=== PATIENT | female | born 1955 | race African-American/Black ===

== ENCOUNTER 2021-07-09 23:10 | Inpatient (IN) | payer MEDICARE, MEDICAID ==
[~2021-07-09] VITALS: Ht 167.6 cm; Wt 131.6 kg
[2021-07-09 23:10] VITALS: BP 167/92
[2021-07-09 23:30] VITALS: BP 192/101
[2021-07-10] MEDS ORDERED: ONDANSETRON HCL 4MG/2ML INJ IV PRN
[2021-07-10] MEDS ORDERED: SODIUM CHLORIDE 0.9% 1,000 ML IV SCH
[2021-07-10] MEDS: HYDROCODONE/ACETAMINOPHEN 10/325MG TABLET PO PRN ×2 (00:27→10:40)
[2021-07-10] MEDS ORDERED: CEFTRIAXONE 1,000 MG in DEXTROSE 5% WATER 50 ML IV SCH ×2 (01:00→06:00)
[2021-07-10] MEDS: CLONIDINE 0.1MG TABLET PO PRN ×2 (02:43→22:08)
[2021-07-10 08:00] VITALS: BP 168/86
[2021-07-10] MEDS ORDERED: AMLODIPINE 10MG TABLET PO SCH (09:00)
[2021-07-10] MEDS ORDERED: LOSARTAN POTASSIUM 50 MG TABLET PO SCH (09:00)
[2021-07-10] MEDS: FERROUS SULFATE 325MG TABLET PO SCH ×3 (10:38→18:30)
[2021-07-10 12:09] LABS: BASOPHILS % 0.2 % (0.0-2.0); EOSINOPHILS % 0.5 % (0.0-5.0); HEMATOCRIT. 31.3 % (36.0-48.0); LYMPHOCYTES % 9.2 % (20.0-50.0); MEAN CORPUSCULAR HEMOGLOBIN 31.3 pg (28.0-32.0); MEAN CORPUSCULAR VOLUME 97.5 fL (81.0-99.0); MEAN PLATELET VOLUME 8.9 fl (7.4-10.4); NEUTROPHILS % 85.1 % (40.0-76.0); PLATELET 254 x1000/uL (130-400); RED BLOOD CELL COUNT 3.21 mill/uL (4.2-5.4); RED CELL DISTRIBUTION WIDTH 15.6 % (11.6-14.6)
[2021-07-10 12:20] LABS: CHLORIDE 109 mEq/L (98-107)
[2021-07-10] MEDS: ASPIRIN 81MG TABLET PO SCH (13:48)
[2021-07-10] MEDS ORDERED: NALOXONE HCL 0.4MG/ML VIAL IV PRN (16:00)
[2021-07-10 20:00] VITALS: BP 170/93
[2021-07-11] VITALS (11 sets, daily range): BP systolic 161–217; BP diastolic 83–105
[2021-07-11] MEDS ORDERED: HYDRALAZINE HCL 25MG TABLET PO SCH ×3 (00:30→09:00)
[2021-07-11] MEDS: HYDROCODONE/ACETAMINOPHEN 10/325MG TABLET PO PRN ×2 (00:40→09:02)
[2021-07-11] MEDS: CLONIDINE 0.1MG TABLET PO PRN ×2 (03:44→17:12)
[2021-07-11] MEDS ORDERED: HYDRALAZINE HCL 50MG TABLET PO SCH (06:30)
[2021-07-11] MEDS ORDERED: CLONIDINE 0.1MG TABLET PO SCH (06:30)
[2021-07-11 07:56] LABS: CLARITY URINE CLEAR (CLEAR); COLOR URINE YELLOW (YELLOW); KETONES URINE TRACE (NEGATIVE); LEUKOCYTE ESTERASE URINE NEGATIVE (NEGATIVE); NITRITE URINE NEGATIVE (NEGATIVE); OCCULT BLOOD URINE TRACE (NEGATIVE); PROTEIN URINE 3+ (NEGATIVE); SPECIFIC GRAVITY URINE 1.012 (1.005-1.030); UROBILINOGEN URINE 0.2 E.U./dL (0.2-1.0)
[2021-07-11] MEDS: ASPIRIN 81MG TABLET PO SCH (09:00)
[2021-07-11] MEDS: AMLODIPINE 10MG TABLET PO SCH ×2 (09:00→21:10)
[2021-07-11] MEDS ORDERED: CARVEDILOL 6.25 MG TABLET PO SCH (09:00)
[2021-07-11] MEDS: FERROUS SULFATE 325MG TABLET PO SCH ×3 (09:00→17:11)
[2021-07-11] MEDS: LOSARTAN POTASSIUM 100 MG TABLET PO SCH (09:00)
[2021-07-11 11:58] LABS: BASOPHILS % 0.4 % (0.0-2.0); EOSINOPHILS % 1.5 % (0.0-5.0); HEMATOCRIT. 32.1 % (36.0-48.0); HEMOGLOBIN. 10.2 g/dL (12.0-16.0); LYMPHOCYTES % 9.3 % (20.0-50.0); MEAN CORPUSCULAR VOLUME 97.3 fL (81.0-99.0); MEAN PLATELET VOLUME 8.7 fl (7.4-10.4); MONOCYTES % 4.8 % (2.0-8.0); PLATELET 272 x1000/uL (130-400); RED BLOOD CELL COUNT 3.29 mill/uL (4.2-5.4); RED CELL DISTRIBUTION WIDTH 15.5 % (11.6-14.6)
[2021-07-11] MEDS ORDERED: CLONIDINE HCL 0.1MG/24HR PATCH TD SCH (12:00)
[2021-07-11] MEDS ORDERED: CLONIDINE HCL 0.2MG/24HR PATCH TD SCH (12:00)
[2021-07-11 12:11] LABS: CHLORIDE 109 mEq/L (98-107)
[2021-07-11 12:24] LABS: TOTAL IRON BINDING CAPACITY 230 ug/dL (250-450)
[2021-07-11 12:34] LABS: FOLIC ACID (FOLATE) SERUM >20 ng/mL ng/mL (>5.38)
[2021-07-11 12:42] LABS: FERRITIN 109 ng/mL (10-291)
[2021-07-11 12:44] LABS: VITAMIN B12 SERUM 404 pg/mL (211-911)
[2021-07-11] MEDS: HYDRALAZINE HCL 100MG TABLET PO SCH ×2 (13:24→23:23)
[2021-07-11] MEDS: POTASSIUM CHLORIDE 20MEQ TABLET SR PO SCH ×2 (13:24→21:09)
[2021-07-11] MEDS ORDERED: HYDRALAZINE 10 MG in SODIUM CHLORIDE 0.9% 49.5 ML IV PRN (19:15)
[2021-07-11] MEDS: CARVEDILOL 12.5MG TABLET PO SCH (21:11)
[2021-07-11 21:50] LABS: T4 FREE 1.21 ng/dL (0.76-1.46)
[2021-07-11] MEDS: ISOSORBIDE DINITRATE 20MG TABLET PO SCH (22:02)
[2021-07-12] MEDS: HYDRALAZINE HCL 100MG TABLET PO SCH ×4 (05:50→22:05)
[2021-07-12] MEDS ORDERED: HYDR118S9 PO (06:48)
[2021-07-12] MEDS ORDERED: LACT10SO30 MT (06:59)
[2021-07-12] MEDS ORDERED: DOCU250C69 PO (06:59)
[2021-07-12] MEDS ORDERED: LUBI24CA5 MT (06:59)
[2021-07-12] MEDS ORDERED: FLUT15.844 BOTHNSTRLS (06:59)
[2021-07-12] MEDS ORDERED: NIFE-53 MT (06:59)
[2021-07-12] MEDS ORDERED: FURO40TA5 MT (06:59)
[2021-07-12] MEDS ORDERED: UMEC1DIS INH (06:59)
[2021-07-12] MEDS ORDERED: CALC-26 PO (06:59)
[2021-07-12] MEDS ORDERED: BACL20TA MT (06:59)
[2021-07-12] MEDS ORDERED: LORA10TA7 PO (06:59)
[2021-07-12] MEDS ORDERED: PROM6.2514 MT (06:59)
[2021-07-12 08:00] VITALS: BP 150/82
[2021-07-12] MEDS ORDERED: *PATIENT'S OWN MEDICATION STORAGE XX SCH (08:15)
[2021-07-12] MEDS: LOSARTAN POTASSIUM 100 MG TABLET PO SCH (08:36)
[2021-07-12] MEDS: ISOSORBIDE DINITRATE 20MG TABLET PO SCH ×3 (08:36→18:30)
[2021-07-12] MEDS: ASPIRIN 81MG TABLET PO SCH (08:36)
[2021-07-12] MEDS: POTASSIUM CHLORIDE 20MEQ TABLET SR PO SCH ×2 (08:36→22:03)
[2021-07-12] MEDS: CARVEDILOL 12.5MG TABLET PO SCH ×2 (08:37→22:04)
[2021-07-12] MEDS: AMLODIPINE 10MG TABLET PO SCH ×2 (08:37→22:04)
[2021-07-12] MEDS: FERROUS SULFATE 325MG TABLET PO SCH ×3 (08:37→18:30)
[2021-07-12] MEDS ORDERED: FUROSEMIDE 40MG TABLET PO SCH (09:00)
[2021-07-12] MEDS: POLYETHYLENE GLYCOL 3350 (17GM) 1 DOSE PACK PO SCH (11:00)
[2021-07-12] MEDS: DOCUSATE SODIUM 100MG CAPSULE PO SCH ×2 (11:00→17:00)
[2021-07-12] MEDS: ASCORBIC ACID 500 MG TABLET PO SCH (12:54)
[2021-07-12] MEDS: CYANOCOBALAMIN 1000MCG/ML VIAL IM SCH (12:55)
[2021-07-12 13:00] VITALS: BP 116/66
[2021-07-12] MEDS ORDERED: FUROSEMIDE 40MG/4ML VIAL IVP SCH (14:30)
[2021-07-12 18:46] LABS: CLARITY URINE CLEAR (CLEAR); COLOR URINE YELLOW (YELLOW); KETONES URINE NEGATIVE (NEGATIVE); LEUKOCYTE ESTERASE URINE NEGATIVE (NEGATIVE); NITRITE URINE NEGATIVE (NEGATIVE); OCCULT BLOOD URINE NEGATIVE (NEGATIVE); PROTEIN URINE 2+ (NEGATIVE); SPECIFIC GRAVITY URINE 1.008 (1.005-1.030); UROBILINOGEN URINE 0.2 E.U./dL (0.2-1.0)
[2021-07-12 20:00] VITALS: BP 121/61
[2021-07-12 22:00] VITALS: BP 141/67
[2021-07-12] MEDS: ACETAMINOPHEN 325MG TABLET PO PRN (22:04)
[2021-07-13] MEDS: HYDRALAZINE HCL 100MG TABLET PO SCH ×3 (05:42→22:00)
[2021-07-13 06:16] LABS: BASOPHILS % 0.5 % (0.0-2.0); EOSINOPHILS % 1.3 % (0.0-5.0); HEMATOCRIT. 26.8 % (36.0-48.0); HEMOGLOBIN. 8.4 g/dL (12.0-16.0); LYMPHOCYTES % 14.4 % (20.0-50.0); MEAN CORPUSCULAR HEMOGLOBIN 30.8 pg (28.0-32.0); MEAN PLATELET VOLUME 8.7 fl (7.4-10.4); MONOCYTES % 7.7 % (2.0-8.0); NEUTROPHILS % 76.1 % (40.0-76.0); PLATELET 226 x1000/uL (130-400); RED BLOOD CELL COUNT 2.73 mill/uL (4.2-5.4); RED CELL DISTRIBUTION WIDTH 15.5 % (11.6-14.6)
[2021-07-13 07:29] VITALS: BP 93/42
[2021-07-13] MEDS: AMLODIPINE 10MG TABLET PO SCH ×2 (09:00→21:00)
[2021-07-13] MEDS: CARVEDILOL 12.5MG TABLET PO SCH ×2 (09:00→21:00)
[2021-07-13] MEDS: SODIUM CHLORIDE 0.45% 1,000 ML IV SCH ×2 (10:45→23:32)
[2021-07-13] MEDS: LACTULOSE 20G/30ML UDC PO SCH ×3 (10:53→21:00)
[2021-07-13] MEDS: CYANOCOBALAMIN 1000MCG/ML VIAL IM SCH (13:03)
[2021-07-13] MEDS: ASPIRIN 81MG TABLET PO SCH (13:04)
[2021-07-13] MEDS: FERROUS SULFATE 325MG TABLET PO SCH ×3 (13:05→19:29)
[2021-07-13] MEDS: ISOSORBIDE DINITRATE 20MG TABLET PO SCH ×3 (13:06→19:34)
[2021-07-13] MEDS: ASCORBIC ACID 500 MG TABLET PO SCH (13:07)
[2021-07-13] MEDS: ACETAMINOPHEN 325MG TABLET PO PRN ×2 (13:08→16:51)
[2021-07-13] MEDS: DOCUSATE SODIUM 100MG CAPSULE PO SCH ×2 (16:34→19:29)
[2021-07-13] MEDS: POLYETHYLENE GLYCOL 3350 (17GM) 1 DOSE PACK PO SCH (16:34)
[2021-07-13] MEDS: LIDOCAINE 5% PATCH TOP SCH (16:38)
[2021-07-13 20:00] VITALS: BP 107/49
[2021-07-14] MEDS: HYDRALAZINE HCL 100MG TABLET PO SCH ×3 (06:11→21:33)
[2021-07-14 07:24] LABS: BASOPHILS % 0.3 % (0.0-2.0); EOSINOPHILS % 2.3 % (0.0-5.0); HEMATOCRIT. 25.8 % (36.0-48.0); HEMOGLOBIN. 8.2 g/dL (12.0-16.0); MEAN CORPUSCULAR HEMOGLOBIN 31.3 pg (28.0-32.0); MEAN CORPUSCULAR VOLUME 98.5 fL (81.0-99.0); MEAN PLATELET VOLUME 8.8 fl (7.4-10.4); MONOCYTES % 7.3 % (2.0-8.0); NEUTROPHILS % 74.1 % (40.0-76.0); PLATELET 221 x1000/uL (130-400); RED BLOOD CELL COUNT 2.62 mill/uL (4.2-5.4); RED CELL DISTRIBUTION WIDTH 15.2 % (11.6-14.6)
[2021-07-14 07:33] LABS: CHLORIDE 111 mEq/L (98-107)
[2021-07-14 07:57] VITALS: BP 116/53
[2021-07-14] MEDS: POLYETHYLENE GLYCOL 3350 (17GM) 1 DOSE PACK PO SCH (08:31)
[2021-07-14] MEDS: LIDOCAINE 5% PATCH TOP SCH (08:32)
[2021-07-14] MEDS: ASPIRIN 81MG TABLET PO SCH (08:32)
[2021-07-14] MEDS: CARVEDILOL 12.5MG TABLET PO SCH ×2 (08:32→21:33)
[2021-07-14] MEDS: DOCUSATE SODIUM 100MG CAPSULE PO SCH ×2 (08:32→16:49)
[2021-07-14] MEDS: ASCORBIC ACID 500 MG TABLET PO SCH (08:32)
[2021-07-14] MEDS: CYANOCOBALAMIN 1000MCG/ML VIAL IM SCH (08:32)
[2021-07-14] MEDS: FERROUS SULFATE 325MG TABLET PO SCH ×3 (08:32→16:49)
[2021-07-14] MEDS: ISOSORBIDE DINITRATE 20MG TABLET PO SCH ×3 (08:32→16:49)
[2021-07-14] MEDS: AMLODIPINE 10MG TABLET PO SCH (08:32)
[2021-07-14] MEDS: SODIUM CHLORIDE 0.45% 1,000 ML IV SCH (12:36)
[2021-07-14 19:06] LABS: 25-HYDROXY VITAMIN D3 2.4 ng/mL (.)
[2021-07-14 20:00] VITALS: BP 126/47
[2021-07-15] MEDS: SODIUM CHLORIDE 0.45% 1,000 ML IV SCH ×2 (03:14→13:03)
[2021-07-15] MEDS: HYDRALAZINE HCL 100MG TABLET PO SCH ×3 (06:13→22:01)
[2021-07-15 08:00] VITALS: BP 121/48
[2021-07-15] MEDS: POLYETHYLENE GLYCOL 3350 (17GM) 1 DOSE PACK PO SCH ×2 (09:00→09:03)
[2021-07-15] MEDS: ISOSORBIDE DINITRATE 20MG TABLET PO SCH ×3 (09:03→17:02)
[2021-07-15] MEDS: CARVEDILOL 12.5MG TABLET PO SCH ×2 (09:03→22:04)
[2021-07-15] MEDS: ASCORBIC ACID 500 MG TABLET PO SCH (09:03)
[2021-07-15] MEDS: ASPIRIN 81MG TABLET PO SCH (09:03)
[2021-07-15] MEDS: FERROUS SULFATE 325MG TABLET PO SCH ×3 (09:03→17:02)
[2021-07-15] MEDS: DOCUSATE SODIUM 100MG CAPSULE PO SCH ×2 (09:03→17:02)
[2021-07-15] MEDS: LIDOCAINE 5% PATCH TOP SCH (09:04)
[2021-07-15] MEDS ORDERED: POTASSIUM CHLORIDE 20MEQ TABLET SR PO SCH (13:00)
[2021-07-15 20:00] VITALS: BP 145/61
[2021-07-16] MEDS: SODIUM CHLORIDE 0.45% 1,000 ML IV SCH ×2 (01:15→13:00)
[2021-07-16] MEDS: HYDRALAZINE HCL 100MG TABLET PO SCH ×3 (06:17→22:41)
[2021-07-16 06:44] LABS: BASOPHILS % 0.7 % (0.0-2.0); HEMATOCRIT. 26.1 % (36.0-48.0); HEMOGLOBIN. 8.2 g/dL (12.0-16.0); LYMPHOCYTES % 16.8 % (20.0-50.0); MEAN CORPUSCULAR HEMOGLOBIN 31.5 pg (28.0-32.0); MEAN CORPUSCULAR VOLUME 99.9 fL (81.0-99.0); MEAN PLATELET VOLUME 8.7 fl (7.4-10.4); MONOCYTES % 10.5 % (2.0-8.0); PLATELET 231 x1000/uL (130-400); RED BLOOD CELL COUNT 2.61 mill/uL (4.2-5.4); RED CELL DISTRIBUTION WIDTH 15.4 % (11.6-14.6)
[2021-07-16 08:26] VITALS: BP 108/36
[2021-07-16] MEDS: CARVEDILOL 12.5MG TABLET PO SCH ×2 (09:00→22:39)
[2021-07-16] MEDS: ISOSORBIDE DINITRATE 20MG TABLET PO SCH ×3 (09:00→17:11)
[2021-07-16] MEDS: ASCORBIC ACID 500 MG TABLET PO SCH (09:17)
[2021-07-16] MEDS: POLYETHYLENE GLYCOL 3350 (17GM) 1 DOSE PACK PO SCH (09:17)
[2021-07-16] MEDS: ASPIRIN 81MG TABLET PO SCH (09:17)
[2021-07-16] MEDS: LIDOCAINE 5% PATCH TOP SCH (09:18)
[2021-07-16] MEDS: FERROUS SULFATE 325MG TABLET PO SCH ×3 (09:18→17:11)
[2021-07-16] MEDS: DOCUSATE SODIUM 100MG CAPSULE PO SCH ×2 (09:18→17:10)
[2021-07-16 10:11] LABS: ANTI-NUCLEAR ANTIBODIES DIRECT Positive (Negative)
[2021-07-16] MEDS: POTASSIUM CHLORIDE 20MEQ TABLET SR PO SCH (12:56)
[2021-07-16 20:00] VITALS: BP 139/52
[2021-07-17] MEDS: HYDRALAZINE HCL 100MG TABLET PO SCH ×3 (06:55→21:48)
[2021-07-17 07:21] LABS: T4 FREE 1.34 ng/dL (0.76-1.46)
[2021-07-17] MEDS: ASPIRIN 81MG TABLET PO SCH (08:27)
[2021-07-17] MEDS: PREDNISONE 10MG TABLET PO SCH ×2 (08:28→17:24)
[2021-07-17 08:29] VITALS: BP 133/56
[2021-07-17] MEDS: ASCORBIC ACID 500 MG TABLET PO SCH (08:29)
[2021-07-17] MEDS: POTASSIUM CHLORIDE 20MEQ TABLET SR PO SCH ×2 (08:29→21:48)
[2021-07-17] MEDS: FERROUS SULFATE 325MG TABLET PO SCH ×3 (08:29→17:00)
[2021-07-17] MEDS: ISOSORBIDE DINITRATE 20MG TABLET PO SCH ×3 (08:29→17:00)
[2021-07-17] MEDS: HYDROXYCHLOROQUINE SULFATE 200MG TABLET PO SCH ×2 (08:29→17:23)
[2021-07-17] MEDS: CARVEDILOL 12.5MG TABLET PO SCH ×2 (08:29→21:49)
[2021-07-17] MEDS: DOCUSATE SODIUM 100MG CAPSULE PO SCH ×2 (08:29→17:23)
[2021-07-17] MEDS: LIDOCAINE 5% PATCH TOP SCH (08:30)
[2021-07-17] MEDS: POLYETHYLENE GLYCOL 3350 (17GM) 1 DOSE PACK PO SCH (09:00)
[2021-07-17] MEDS: SODIUM CHLORIDE 0.45% 1,000 ML IV SCH (14:12)
[2021-07-17] MEDS: ACETAMINOPHEN 325MG TABLET PO PRN (19:02)
[2021-07-17 20:00] VITALS: BP 119/54
[2021-07-18] MEDS: SODIUM CHLORIDE 0.45% 1,000 ML IV SCH ×2 (02:48→16:46)
[2021-07-18] MEDS: HYDRALAZINE HCL 100MG TABLET PO SCH ×3 (05:54→21:56)
[2021-07-18 08:00] VITALS: BP 127/57
[2021-07-18 09:10] LABS: ANTI-DNA DOUBLE STRANDED QUANT 43 IU/mL (0-9); G6PD RBC 2.43 x10E6/uL (3.77-5.28)
[2021-07-18] MEDS: HYDROXYCHLOROQUINE SULFATE 200MG TABLET PO SCH ×2 (09:22→16:46)
[2021-07-18] MEDS: ASCORBIC ACID 500 MG TABLET PO SCH (09:22)
[2021-07-18] MEDS: ASPIRIN 81MG TABLET PO SCH (09:22)
[2021-07-18] MEDS: DOCUSATE SODIUM 100MG CAPSULE PO SCH ×2 (09:22→16:46)
[2021-07-18] MEDS: CARVEDILOL 12.5MG TABLET PO SCH ×2 (09:22→20:13)
[2021-07-18] MEDS: ISOSORBIDE DINITRATE 20MG TABLET PO SCH ×3 (09:22→16:48)
[2021-07-18] MEDS: FERROUS SULFATE 325MG TABLET PO SCH ×3 (09:23→16:46)
[2021-07-18] MEDS: PREDNISONE 10MG TABLET PO SCH ×2 (09:23→16:47)
[2021-07-18] MEDS: POTASSIUM CHLORIDE 20MEQ TABLET SR PO SCH ×2 (09:23→16:46)
[2021-07-18] MEDS: POLYETHYLENE GLYCOL 3350 (17GM) 1 DOSE PACK PO SCH (09:23)
[2021-07-18] MEDS: LIDOCAINE 5% PATCH TOP SCH (09:24)
[2021-07-18 15:06] LABS: G6PD QUANTITATIVE 347 (127-427)
[2021-07-18 20:00] VITALS: BP 141/59
[2021-07-19] MEDS: HYDRALAZINE HCL 100MG TABLET PO SCH ×3 (06:00→20:57)
[2021-07-19] MEDS: SODIUM CHLORIDE 0.45% 1,000 ML IV SCH ×3 (06:07→21:01)
[2021-07-19 08:00] VITALS: BP 145/68
[2021-07-19] MEDS: POLYETHYLENE GLYCOL 3350 (17GM) 1 DOSE PACK PO SCH (09:00)
[2021-07-19] MEDS: LIDOCAINE 5% PATCH TOP SCH ×2 (09:00→09:33)
[2021-07-19] MEDS: ASPIRIN 81MG TABLET PO SCH (09:11)
[2021-07-19] MEDS: ASCORBIC ACID 500 MG TABLET PO SCH (09:11)
[2021-07-19] MEDS: DOCUSATE SODIUM 100MG CAPSULE PO SCH ×2 (09:12→17:19)
[2021-07-19] MEDS: CARVEDILOL 12.5MG TABLET PO SCH ×2 (09:12→20:58)
[2021-07-19] MEDS: FERROUS SULFATE 325MG TABLET PO SCH ×3 (09:12→17:19)
[2021-07-19] MEDS: POTASSIUM CHLORIDE 20MEQ TABLET SR PO SCH ×2 (09:13→17:19)
[2021-07-19] MEDS: PREDNISONE 10MG TABLET PO SCH ×2 (09:13→17:20)
[2021-07-19] MEDS: ISOSORBIDE DINITRATE 20MG TABLET PO SCH ×3 (09:13→17:19)
[2021-07-19] MEDS: HYDROXYCHLOROQUINE SULFATE 200MG TABLET PO SCH ×2 (09:13→17:19)
[2021-07-19 13:07] LABS: ANTI-MYELOPEROXIDASE AB < 9.0 U/mL (0.0-9.0); ANTI-PROTEINASE 3 ABS < 3.5 U/mL (0.0-3.5)
[2021-07-19] MEDS ORDERED: BUPIVACAINE HCL 0.5% (5MG/ML) 50ML IR NR (15:00)
[2021-07-19] MEDS ORDERED: ETHYL CHLORIDE CAN TOP NR (15:00)
[2021-07-19] MEDS ORDERED: LIDOCAINE HCL/PF 1% 10 MG/ML 5ML VIAL INFIL NR (15:00)
[2021-07-19] MEDS ORDERED: TRIAMCINOLONE ACETONIDE 40MG/ML 1ML VIAL IM NR (15:00)
[2021-07-19 20:00] VITALS: BP 139/63
[2021-07-20] MEDS: HYDRALAZINE HCL 100MG TABLET PO SCH ×3 (05:07→21:36)
[2021-07-20 06:43] LABS: HEMATOCRIT. 25.8 % (36.0-48.0); HEMOGLOBIN. 8.5 g/dL (12.0-16.0); MEAN CORPUSCULAR HEMOGLOBIN 31.7 pg (28.0-32.0); MEAN CORPUSCULAR VOLUME 96.8 fL (81.0-99.0); MEAN PLATELET VOLUME 8.2 fl (7.4-10.4); PLATELET 301 x1000/uL (130-400); RED BLOOD CELL COUNT 2.67 mill/uL (4.2-5.4); RED CELL DISTRIBUTION WIDTH 15.3 % (11.6-14.6)
[2021-07-20 08:00] VITALS: BP 148/65
[2021-07-20 09:08] LABS: ALDOLASE 2.7 U/L (3.3-10.3); ANGIOTENSION CONVERTING ENZYME 30 U/L (14-82)
[2021-07-20] MEDS: POLYETHYLENE GLYCOL 3350 (17GM) 1 DOSE PACK PO SCH ×2 (09:48→14:41)
[2021-07-20] MEDS: POTASSIUM CHLORIDE 20MEQ TABLET SR PO SCH ×2 (09:49→17:23)
[2021-07-20] MEDS: HYDROXYCHLOROQUINE SULFATE 200MG TABLET PO SCH ×2 (09:49→17:23)
[2021-07-20] MEDS: DOCUSATE SODIUM 100MG CAPSULE PO SCH ×2 (09:49→17:23)
[2021-07-20] MEDS: PREDNISONE 10MG TABLET PO SCH ×2 (09:49→17:24)
[2021-07-20] MEDS: ASPIRIN 81MG TABLET PO SCH (09:49)
[2021-07-20] MEDS: ASCORBIC ACID 500 MG TABLET PO SCH (09:49)
[2021-07-20] MEDS: FERROUS SULFATE 325MG TABLET PO SCH ×3 (09:49→17:23)
[2021-07-20] MEDS: ISOSORBIDE DINITRATE 20MG TABLET PO SCH ×3 (09:50→17:24)
[2021-07-20] MEDS: CARVEDILOL 12.5MG TABLET PO SCH ×2 (09:50→21:36)
[2021-07-20] MEDS: LIDOCAINE 5% PATCH TOP SCH (09:52)
[2021-07-20 11:15] LABS: PLATELET ESTIMATE NORMAL
[2021-07-20] MEDS: SODIUM CHLORIDE 0.45% 1,000 ML IV SCH (14:13)
[2021-07-20 17:11] LABS: ACTIN (SMOOTH MUSCLE) ANTIBODY 7 Units (0-19)
[2021-07-20 20:00] VITALS: BP 148/72
[2021-07-21] MEDS: SODIUM CHLORIDE 0.45% 1,000 ML IV SCH ×2 (01:51→20:16)
[2021-07-21] MEDS: HYDRALAZINE HCL 100MG TABLET PO SCH ×3 (06:01→21:49)
[2021-07-21 08:46] VITALS: BP 123/51
[2021-07-21] MEDS: DOCUSATE SODIUM 100MG CAPSULE PO SCH ×2 (09:40→17:09)
[2021-07-21] MEDS: CARVEDILOL 12.5MG TABLET PO SCH ×2 (09:40→21:50)
[2021-07-21] MEDS: POTASSIUM CHLORIDE 20MEQ TABLET SR PO SCH ×2 (09:41→17:09)
[2021-07-21] MEDS: ASCORBIC ACID 500 MG TABLET PO SCH (09:41)
[2021-07-21] MEDS: FERROUS SULFATE 325MG TABLET PO SCH ×3 (09:41→17:09)
[2021-07-21] MEDS: HYDROXYCHLOROQUINE SULFATE 200MG TABLET PO SCH ×2 (09:41→17:09)
[2021-07-21] MEDS: ASPIRIN 81MG TABLET PO SCH (09:41)
[2021-07-21] MEDS: POLYETHYLENE GLYCOL 3350 (17GM) 1 DOSE PACK PO SCH (09:41)
[2021-07-21] MEDS: PREDNISONE 10MG TABLET PO SCH ×2 (09:41→17:09)
[2021-07-21] MEDS: ISOSORBIDE DINITRATE 20MG TABLET PO SCH ×3 (09:41→17:10)
[2021-07-21] MEDS: LIDOCAINE 5% PATCH TOP SCH (09:44)
[2021-07-21] MEDS ORDERED: METHYLPREDNISOLONE ACETATE 40MG/ML VIAL INJ NR (18:30)
[2021-07-21 20:00] VITALS: BP 153/69
[2021-07-22] MEDS: SODIUM CHLORIDE 0.45% 1,000 ML IV SCH ×2 (05:31→22:11)
[2021-07-22] MEDS: HYDRALAZINE HCL 100MG TABLET PO SCH ×3 (05:31→22:11)
[2021-07-22 08:00] VITALS: BP 148/49
[2021-07-22] MEDS ORDERED: PREDNISONE 10MG TABLET PO SCH (09:00)
[2021-07-22] MEDS: LIDOCAINE 5% PATCH TOP SCH (09:00)
[2021-07-22] MEDS: POLYETHYLENE GLYCOL 3350 (17GM) 1 DOSE PACK PO SCH (09:00)
[2021-07-22 09:11] LABS: GLOMERULAR BASEMENT MEMB AB 3 units (0-20)
[2021-07-22] MEDS: POTASSIUM CHLORIDE 20MEQ TABLET SR PO SCH ×2 (09:32→17:56)
[2021-07-22] MEDS: DOCUSATE SODIUM 100MG CAPSULE PO SCH ×2 (09:32→17:56)
[2021-07-22] MEDS: ASPIRIN 81MG TABLET PO SCH (09:32)
[2021-07-22] MEDS: PREDNISONE 10MG TABLET PO SCH ×2 (09:33→17:56)
[2021-07-22] MEDS: ASCORBIC ACID 500 MG TABLET PO SCH (09:33)
[2021-07-22] MEDS: HYDROXYCHLOROQUINE SULFATE 200MG TABLET PO SCH ×2 (09:34→17:59)
[2021-07-22] MEDS: CARVEDILOL 12.5MG TABLET PO SCH ×2 (09:35→22:11)
[2021-07-22] MEDS: FERROUS SULFATE 325MG TABLET PO SCH ×3 (09:35→17:56)
[2021-07-22] MEDS: ISOSORBIDE DINITRATE 20MG TABLET PO SCH ×3 (09:35→17:59)
[2021-07-22 13:06] LABS: ATYPICAL P-ANCA <1:20 titer (Neg:<1:20); CYTOPLASMIC C-ANCA <1:20 titer (Neg:<1:20); PERINUCLEAR P-ANCA <1:20 titer (Neg:<1:20); VITAMIN D 1-25 DIHYDROXY 15.8 pg/mL (19.9-79.3)
[2021-07-22 20:00] VITALS: BP 140/70
[2021-07-23] MEDS: HYDRALAZINE HCL 100MG TABLET PO SCH ×3 (06:03→21:49)
[2021-07-23 07:41] LABS: BASOPHILS % 0.3 % (0.0-2.0); HEMATOCRIT. 25.6 % (36.0-48.0); HEMOGLOBIN. 8.1 g/dL (12.0-16.0); LYMPHOCYTES % 10.4 % (20.0-50.0); MEAN CORPUSCULAR VOLUME 97.3 fL (81.0-99.0); MEAN PLATELET VOLUME 8.7 fl (7.4-10.4); MONOCYTES % 6.2 % (2.0-8.0); NEUTROPHILS % 83.1 % (40.0-76.0); PLATELET 296 x1000/uL (130-400); RED BLOOD CELL COUNT 2.63 mill/uL (4.2-5.4); RED CELL DISTRIBUTION WIDTH 15.3 % (11.6-14.6)
[2021-07-23 08:22] VITALS: BP 150/75
[2021-07-23] MEDS: SODIUM CHLORIDE 0.45% 1,000 ML IV SCH ×2 (08:26→21:50)
[2021-07-23] MEDS: POLYETHYLENE GLYCOL 3350 (17GM) 1 DOSE PACK PO SCH (08:27)
[2021-07-23] MEDS: DOCUSATE SODIUM 100MG CAPSULE PO SCH ×2 (08:28→16:40)
[2021-07-23] MEDS: LIDOCAINE 5% PATCH TOP SCH (08:28)
[2021-07-23] MEDS: ISOSORBIDE DINITRATE 20MG TABLET PO SCH ×3 (08:29→16:40)
[2021-07-23] MEDS: FERROUS SULFATE 325MG TABLET PO SCH ×3 (08:29→16:41)
[2021-07-23] MEDS: POTASSIUM CHLORIDE 20MEQ TABLET SR PO SCH ×2 (08:29→16:40)
[2021-07-23] MEDS: PREDNISONE 10MG TABLET PO SCH ×2 (08:29→16:40)
[2021-07-23] MEDS: ASPIRIN 81MG TABLET PO SCH (08:29)
[2021-07-23] MEDS: HYDROXYCHLOROQUINE SULFATE 200MG TABLET PO SCH ×2 (08:29→16:40)
[2021-07-23] MEDS: ASCORBIC ACID 500 MG TABLET PO SCH (08:29)
[2021-07-23] MEDS: CARVEDILOL 12.5MG TABLET PO SCH ×2 (08:30→21:49)
[2021-07-23 20:00] VITALS: BP 161/71
[2021-07-24] MEDS: HYDRALAZINE HCL 100MG TABLET PO SCH (06:34)
[2021-07-24 08:00] VITALS: BP 132/69
[2021-07-24] MEDS: ASCORBIC ACID 500 MG TABLET PO SCH (08:49)
[2021-07-24] MEDS: ASPIRIN 81MG TABLET PO SCH (08:49)
[2021-07-24] MEDS: LIDOCAINE 5% PATCH TOP SCH (08:50)
[2021-07-24] MEDS: FERROUS SULFATE 325MG TABLET PO SCH ×2 (08:51→13:33)
[2021-07-24] MEDS: PREDNISONE 10MG TABLET PO SCH (08:51)
[2021-07-24] MEDS: DOCUSATE SODIUM 100MG CAPSULE PO SCH (08:52)
[2021-07-24] MEDS: CARVEDILOL 12.5MG TABLET PO SCH (08:52)
[2021-07-24] MEDS: POTASSIUM CHLORIDE 20MEQ TABLET SR PO SCH (08:52)
[2021-07-24] MEDS: HYDROXYCHLOROQUINE SULFATE 200MG TABLET PO SCH (08:53)
[2021-07-24] MEDS: ISOSORBIDE DINITRATE 20MG TABLET PO SCH ×2 (08:53→13:33)
[2021-07-24] MEDS: POLYETHYLENE GLYCOL 3350 (17GM) 1 DOSE PACK PO SCH (08:54)
[2021-07-24] MEDS: SODIUM CHLORIDE 0.45% 1,000 ML IV SCH (08:54)
[2021-07-24 08:59] VITALS: BP 132/69
[2021-07-26 04:07] LABS: ANA IFA Negative (.)
== END 2021-07-24 13:40 | disposition home health service (06) | DRG 91 ==
PROVIDERS: ADMIT Physical Medicine & Rehabilitation Spinal Cord Injury Medicine; ATTEND Hospitalist
PROC: 0S9D3ZZ Drainage of Left Knee Joint, Percutaneous Approach (ICD-10-PCS; principal; 2021-07-21)
PROC: 0S9C3ZZ Drainage of Right Knee Joint, Percutaneous Approach (ICD-10-PCS; 2021-07-21)
PROC: 0S993ZZ Drainage of Right Hip Joint, Percutaneous Approach (ICD-10-PCS; 2021-07-21)
PROC: 0S9B3ZZ Drainage of Left Hip Joint, Percutaneous Approach (ICD-10-PCS; 2021-07-21)
PROC: 3E0U33Z Introduction of Anti-inflammatory into Joints, Percutaneous Approach (ICD-10-PCS; 2021-07-21)
PROC: 3E0U33Z Introduction of Anti-inflammatory into Joints, Percutaneous Approach (ICD-10-PCS; 2021-07-21)
PROC: 3E0U3BZ Introduction of Anesthetic Agent into Joints, Percutaneous Approach (ICD-10-PCS; 2021-07-21)
PROC: 3E0U3BZ Introduction of Anesthetic Agent into Joints, Percutaneous Approach (ICD-10-PCS; 2021-07-21)
DX: G92 Toxic encephalopathy (principal); G82.50 Quadriplegia, unspecified; I50.33 Acute on chronic diastolic (congestive) heart failure; E43 Unspecified severe protein-calorie malnutrition; A41.9 Sepsis, unspecified organism; I13.0 Hypertensive heart and chronic kidney disease with heart failure and stage 1 through stage 4 chronic kidney disease, or unspecified chronic kidney disease; M62.82 Rhabdomyolysis; I31.3 Pericardial effusion (noninflammatory); N17.9 Acute kidney failure, unspecified; Z68.42 Body mass index [BMI] 45.0-49.9, adult; G89.29 Other chronic pain; F03.90 Unspecified dementia, unspecified severity, without behavioral disturbance, psychotic disturbance, mood disturbance, and anxiety; I16.0 Hypertensive urgency; M06.9 Rheumatoid arthritis, unspecified; M13.0 Polyarthritis, unspecified; I35.0 Nonrheumatic aortic (valve) stenosis; N18.30 Chronic kidney disease, stage 3 unspecified; I27.20 Pulmonary hypertension, unspecified; E87.6 Hypokalemia; E83.52 Hypercalcemia; E66.01 Morbid (severe) obesity due to excess calories; D50.9 Iron deficiency anemia, unspecified; D63.8 Anemia in other chronic diseases classified elsewhere; D72.810 Lymphocytopenia; D72.829 Elevated white blood cell count, unspecified; I71.9 Aortic aneurysm of unspecified site, without rupture; K59.00 Constipation, unspecified; M51.36 Other intervertebral disc degeneration, lumbar region; M70.70 Other bursitis of hip, unspecified hip; N63.20 Unspecified lump in the left breast, unspecified quadrant; R53.81 Other malaise; R20.0 Anesthesia of skin; R80.9 Proteinuria, unspecified; I95.9 Hypotension, unspecified; Z82.3 Family history of stroke; Z82.49 Family history of ischemic heart disease and other diseases of the circulatory system; Z90.5 Acquired absence of kidney; Z98.84 Bariatric surgery status; Z79.899 Other long term (current) drug therapy
CPT/HCPCS: 36415; 70551; 71045; 71046; 72100; 73560; 73718; 74018; 76770; 80048; 80053; 81003; 82085; 82140; 82164; 82270; 82306; 82550; 82570; 82607; 82652; 82728; 82746; 82955; 82962; 83036; 83520; 83540; 83550; 83735; 84134; 84145; 84156; 84439; 84443; 84481; 84550; 85025; 85041; 86038; 86160; 86225; 86235; 86256; 86431; 86880; 92523; 92610; 93005; 93306; 93970; 97110; 97116; 97162; 97166; 97530; 97535; A6261; J0696; J1030; J1940; J2310; J3301; J3420; J3490; J7030; J7060; J7512